=== PATIENT | male | born 2000 | race Two or more races ===

== ENCOUNTER 2022-06-06 11:17 | Emergency (ER) | payer OTHER ==
[~2022-06-06] VITALS: Ht 175.3 cm; Wt 94.0 kg
[2022-06-06] MEDS ORDERED: IBUP800T27 PO (13:59)
[2022-06-06] MEDS ORDERED: METH750T22 PO (13:59)
[2022-06-06 14:09] VITALS: BP 136/78
== END 2022-06-06 14:10 | disposition left against medical advice (07) ==
LOC: ER 11:17
DX: S29.011A Strain of muscle and tendon of front wall of thorax, initial encounter (principal); S39.012A Strain of muscle, fascia and tendon of lower back, initial encounter; Z88.6 Allergy status to analgesic agent; Z53.29 Procedure and treatment not carried out because of patient's decision for other reasons; Z88.8 Allergy status to other drugs, medicaments and biological substances; V89.2XXA Person injured in unspecified motor-vehicle accident, traffic, initial encounter; Y93.89 Activity, other specified; Y92.89 Other specified places as the place of occurrence of the external cause; Y99.8 Other external cause status
CPT/HCPCS: 71045; 93005

== ENCOUNTER 2022-08-03 23:49 | Emergency (ER) | payer OTHER ==
[~2022-08-03] VITALS: Ht 177.8 cm; Wt 105.0 kg
[~2022-08-03 23:49] MED LIST: IBUP-1456 PO; METH-1182 PO
[2022-08-03 23:55] VITALS: BP 132/79
[2022-08-04 01:32] LABS: Basophils # (auto) 0 10 ^3/uL (0-0.2); Eosinophils # (auto) 0 10 ^3/uL (0-0.8); Hemoglobin 15.2 g/dL (13.5-17.5); Nucleated Red Blood Cells % 0.1 %
[2022-08-04 01:34] LABS: Basophils % (auto) 0.2 % (0.0-2.0); Hematocrit 42.7 % (41.0-53.0); Lymphocytes # (auto) 0.9 10 ^3/uL (0.4-5.4); Lymphocytes % (auto) 6.4 % (10.0-50.0); Mean Corpuscular Hemoglobin 30.3 pg (28.0-32.0); Mean Corpuscular Hgb Conc. 35.7 g/dL (32.0-36.0); Mean Corpuscular Volume 84.8 fL (80.0-100.0); Monocytes # (auto) 0.5 10 ^3/uL (0-1.3); Monocytes % (auto) 3.3 % (0.0-12.0); Neutrophils # (auto) 12.8 10 ^3/uL (1.6-8.6); Neutrophils % (auto) 90.1 % (37.0-80.0); Red Blood Cells 5.04 10^6/uL (4.5-5.90); Red Cell Distribution Width 12.4 % (11.8-14.3); White Blood Cell 14.2 10^3/uL (4.4-10.8)
[2022-08-04 01:38] LABS: Albumin 4.1 g/dL (3.4-5.0); Anion Gap 5 (5-15); BUN/Creatinine Ratio 10.4 (10.0-20.0); Blood Urea Nitrogen 8 mg/dL (7-18); Calcium 8.9 mg/dL (8.5-10.1); Carbon Dioxide 25 mmol/L (21-32); Chloride 106 mmol/L (98-107); GFR African American 161 mL/min; GFR Non-African American 133 mL/min; Glucose 102 mg/dL (74-106); Potassium 4.2 mmol/L (3.5-5.1); Sodium 136 mmol/L (136-145)
[2022-08-04 01:47] LABS: Alanine Aminotransferase 64 U/L (16-61); Alkaline Phosphatase 74 U/L (45-117); Aspartate Aminotransferase 31 U/L (15-37); Bilirubin, Total 0.4 mg/dL (0.2-1.0); Total Protein 8.2 g/dL (6.4-8.2)
[2022-08-04 02:01] LABS: Blood Alcohol < 3.0 mg/dL (0-5)
== END 2022-08-04 06:03 | disposition left against medical advice (07) ==
LOC: ER 23:49 → EDBD 23:49 → ER 08-04 06:03
DX: F41.9 Anxiety disorder, unspecified (principal); F12.90 Cannabis use, unspecified, uncomplicated; Z53.29 Procedure and treatment not carried out because of patient's decision for other reasons
CPT/HCPCS: 36415; 80053; 80320; 85025